=== PATIENT | female | born 1940 | race Caucasian/White ===

== ENCOUNTER 2017-12-27 08:53 | Emergency (ER) | payer OTHER ==
[~2017-12-27] VITALS: Ht 152.4 cm; Wt 90.7 kg
[~2017-12-27 08:53] MED LIST: FOSAMAX70 MG PO; LASIX20 MG PO; OSEL75CA PO; TUSSI PRES-B L120 M1 PO; VASOTEC20 MG PO; VERAPAMIL HCL240 M1 PO; ZITHROMAX TRI-500 MG PO; ZOCOR40 MG PO
[2017-12-27] MEDS ORDERED: AMLODIPINE BESYL5 MG (09:13)
[2017-12-27] MEDS ORDERED: ASPIR 8181 MG (09:13)
[2017-12-27] MEDS ORDERED: ZESTRIL40 M1 (09:14)
[2017-12-27] MEDS ORDERED: LIPITOR20 MG (09:14)
[2017-12-27] MEDS ORDERED: LASIX20 MG (09:14)
== END 2017-12-27 16:38 | disposition home or self-care (01) ==
LOC: ER 08:53
DX: R10.32 Left lower quadrant pain (principal)

== ENCOUNTER 2019-11-24 08:23 | Inpatient (IN) | payer OTHER ==
[~2019-11-24] VITALS: Ht 157.5 cm; Wt 91.2 kg
[~2019-11-24 08:23] MED LIST changes: +AMLODIPINE BESYL5 MG; +ASPIR 8181 MG; +LASIX20 MG; +LIPITOR20 MG; +ZESTRIL40 M1
[2019-11-24] MEDS ORDERED: CARDURA PO (08:41)
[2019-11-24] MEDS ORDERED: [UNRECOGNIZED DRUG - OTHER] PO (08:42)
[2019-11-24] MEDS ORDERED: ZESTRIL40 M1 PO (08:43)
[2019-11-24] MEDS ORDERED: TOPROL XL50 M1 PO (08:43)
[2019-11-30] MEDS ORDERED: HYDROCHLOROTHIA25 MG PO (10:30)
[2019-11-30] MEDS ORDERED: DOXAZOSIN MESYLA2 MG PO (10:31)
[2019-11-30] MEDS ORDERED: VITAMIN D10000 UNIT PO (10:31)
[2019-12-01] MEDS ORDERED: TOPROL XL100 M1 PO (09:45)
[2019-12-01] MEDS ORDERED: AMLODIPINE BESYL5 MG PO (09:45)
[2019-12-01] MEDS ORDERED: CEFDINIR300 MG PO (09:45)
[2019-12-01] MEDS ORDERED: LASIX20 MG PO (09:45)
[2019-12-01] MEDS ORDERED: LIPITOR20 MG PO (09:45)
[2019-12-01] MEDS ORDERED: ELIQUIS5 MG PO (09:45)
[2019-12-01] MEDS ORDERED: LISINOPRIL40 MG PO (09:45)
[2019-12-01] MEDS ORDERED: CLOTRIMAZOLE10 MG MM (10:24)
== END 2019-12-01 10:50 | disposition home or self-care (01) | DRG 194 ==
LOC: ER 08:23 → SEC-K 11-25 14:03 → MEDI 11-25 15:54 → SEC-K 11-25 16:01 → MEDJ 11-25 18:58 → SEC-K 11-25 19:23 → SURH 11-26 18:43
PROVIDERS: ADMIT Internal Medicine
PROC: 8E0ZXY6 Isolation (ICD-10-PCS; principal; 2019-11-25)
PROC: B246ZZZ Ultrasonography of Right and Left Heart (ICD-10-PCS; 2019-11-25)
PROC: 4A12X4Z Monitoring of Cardiac Electrical Activity, External Approach (ICD-10-PCS; 2019-11-25)
PROC: 3E0F7GC Introduction of Other Therapeutic Substance into Respiratory Tract, Via Natural or Artificial Opening (ICD-10-PCS; 2019-11-25)
PROC: 4A033R1 Measurement of Arterial Saturation, Peripheral, Percutaneous Approach (ICD-10-PCS; 2019-11-26)
PROC: BB24ZZZ Computerized Tomography (CT Scan) of Bilateral Lungs (ICD-10-PCS; 2019-11-28)
DX: J15.7 Pneumonia due to Mycoplasma pneumoniae (principal); I31.3 Pericardial effusion (noninflammatory); J91.8 Pleural effusion in other conditions classified elsewhere; I11.0 Hypertensive heart disease with heart failure; K57.30 Diverticulosis of large intestine without perforation or abscess without bleeding; I07.1 Rheumatic tricuspid insufficiency; E78.49 Other hyperlipidemia; I48.0 Paroxysmal atrial fibrillation; I50.9 Heart failure, unspecified

== ENCOUNTER 2019-12-06 21:05 | Inpatient (IN) | payer OTHER ==
[~2019-12-06] VITALS: Ht 162.6 cm; Wt 90.7 kg
[~2019-12-06 21:05] MED LIST changes: +AMLODIPINE BESYL5 MG PO; +CARDURA PO; +CEFDINIR300 MG PO; +CLOTRIMAZOLE10 MG MM; +DOXAZOSIN MESYLA2 MG PO; +ELIQUIS5 MG PO; +HYDROCHLOROTHIA25 MG PO; +LIPITOR20 MG PO; +LISINOPRIL40 MG PO; +TOPROL XL100 M1 PO; +TOPROL XL50 M1 PO; +VITAMIN D10000 UNIT PO; +ZESTRIL40 M1 PO; +[UNRECOGNIZED DRUG - OTHER] PO
--- NOTE | 2019-12-06 21:22 | NUR ---
SE RECIBE PTE ALERTA Y ORIENTADA X3,TRANSFERIDA DE EL [facility] ,REFIERE TENER EL BRAZO DERECHO ENROJECIDO ,INFLAMADO REFIERE QUE ESTUVO [facility]PITAL[facility] EN [facility] EN PRASAD ANTERIORES,LLEGO CANALIZDA EN LA MANO IZQUIERDA.
--- NOTE | 2019-12-07 01:39 | NUR ---
SE ORIENTA PTE SOBRE EL TRATAMIENTO JOHN ORDENADO POR LA MARIEL ELTON PTE ALERTA Y CONCIENTE POR 3 SE ADMINISTRAN MEDICAMENTO JOHN ORDENADO SE OBSERVA EL BRAZO DERECHO HINCHADO Y CON HEMATOMA PTE SE MANTIENE EN OBSERVACION Y BAJO TRATAMIENTO.
--- NOTE | 2019-12-07 08:16 | NUR ---
SE RECIBE PTE FEMENIA DE 79 YRS ALERTA CONCIENTE Y TRANQUILA EN JAVIER CON BARANDAS ELEVADA, PTE CON H/L PATENTE Y AURELIANO DE EDEMA. SE MANTIENE EN ESPERA DE MEDICO CONSULTOR DR.ESTEBAN CARRILLO LA CUAL ESTA HACIENDO EVALUADO.SE MANTIENE BAJO OBSERVACION.
--- NOTE | 2019-12-07 08:37 | NUR ---
SE LE OBSERVA A PTE BRASO DERECHO CON EDEMA YARBROUGH Y CALIENTE AL TACTO. SE ENVIA A PTE A ESTUDIO DE DOPPLES SE OBSERVA POR CAMBIOS.
--- NOTE | 2019-12-07 14:19 | NUR ---
SE INTENTA VARIAS VECES DE GABRIEL MUESTRAS DE LORNA LA CUAL NO SE PUDO. SE MANTIENE BAAJO OBSERVACION POR CAMBIOS.
[2019-12-09] MEDS ORDERED: INTEGRA CAPSUL1 EACH PO (10:24)
== END 2019-12-09 12:49 | disposition home or self-care (01) | DRG 303 ==
LOC: ER 21:05 → SEC-K 12-07 14:31 → MEDJ 12-07 14:31
PROVIDERS: ADMIT Internal Medicine
PROC: 30233N1 Transfusion of Nonautologous Red Blood Cells into Peripheral Vein, Percutaneous Approach (ICD-10-PCS; principal; 2019-12-07)
DX: I87.8 Other specified disorders of veins (principal); I48.0 Paroxysmal atrial fibrillation; D64.89 Other specified anemias; I10 Essential (primary) hypertension; E66.09 Other obesity due to excess calories; Z79.01 Long term (current) use of anticoagulants

== ENCOUNTER 2021-07-04 09:16 | Outpatient (CLI) | payer OTHER ==
[~2021-07-04 09:16] MED LIST changes: +INTEGRA CAPSUL1 EACH PO
== END 2021-07-04 09:29 | disposition home or self-care (01) ==
LOC: TOM 09:16
PROVIDERS: ATTEND Internal Medicine Gastroenterology
DX: K57.90 Diverticulosis of intestine, part unspecified, without perforation or abscess without bleeding (principal); R10.32 Left lower quadrant pain; Z12.11 Encounter for screening for malignant neoplasm of colon